=== PATIENT | male | born 1990 | race Caucasian/White ===

== ENCOUNTER 2017-11-06 12:44 | Outpatient (RCR) | payer OTHER | END 2018-02-04 | disposition home or self-care (01) | LOC: WSOH | DX: S05.02XA Injury of conjunctiva and corneal abrasion without foreign body, left eye, initial encounter (principal); H02.814 Retained foreign body in left upper eyelid; Y93.01 Activity, walking, marching and hiking; Y99.0 Civilian activity done for income or pay ==

== ENCOUNTER 2020-11-01 15:46 | Outpatient (RCR) | payer OTHER | END 2020-11-30 13:10 | LOC: WSOH 15:46 | DX: M25.512 Pain in left shoulder (principal); Y99.0 Civilian activity done for income or pay ==

== ENCOUNTER → 2020-11-28 | Outpatient (CLI) | payer OTHER | LOC: COL.RAD 09:12 | DX: M25.512 Pain in left shoulder (principal) | CPT/HCPCS: A9585; Q9967 ==

== ENCOUNTER 2020-11-30 13:10 | Outpatient (RCR) | payer OTHER | END 2020-12-21 15:18 | disposition home or self-care (01) | LOC: WSOH 13:10 | DX: S43.432D Superior glenoid labrum lesion of left shoulder, subsequent encounter (principal); Y99.0 Civilian activity done for income or pay ==